=== PATIENT | male | born 1930 | race Caucasian/White ===

== ENCOUNTER 2017-04-22 07:46 | Inpatient (IN) | payer MEDICARE ==
[2017-04-22] MEDS ORDERED: IPRATROPIUM-ALBUTEROL 3 ML NEB INHALATION STA (08:09)
--- NOTE | 2017-04-22 08:13 | ED ---
SOB HPI - General Chief Complaint: Shortness of Breath Stated Complaint: SOB Time Seen by Provider: 04/22/17 08:01 Source: patient, RN notes reviewed Mode of arrival: ambulatory Limitations: no limitations - History of Present Illness Initial Comments: This is an 86-year-old male with a history of COPD and asthma and recently diagnosed left-sided pneumonia who presents today with complaints of some chest discomfort on the right cough with some foamy phlegm production fevers chills and sweats. He generally does not feel well he states. He does state he saw his doctor 3 days ago started on antibiotic she was diagnosed with something in his left lung now he feels like it's in his right lung. MD Complaint: shortness of breath, cough - Related Data Home Medications Medication Instructions Recorded Confirmed Albuterol Sulfate [Proair Hfa] 2 puff INHALATION RT-Q6H PRN 04/20/16 04/22/17 Aspirin EC [Ecotrin Low Dose] 81 mg PO DAILY 04/20/16 04/22/17 Cholecalciferol [Vitamin D3] 1,000 unit PO DAILY@1200 04/20/16 04/22/17 Fluticasone Nasal [place] [Flonase 2 spr EA NOSTRIL DAILY 04/20/16 04/22/17 Nasal [place]] Fluticasone/Salmeterol [Advair 1 inhalation PO RT-DAILY 04/20/16 04/22/17 500-50 Diskus] Loratadine [Claritin] 10 mg PO DAILY 04/20/16 04/22/17 Losartan/Hydrochlorothiazide 1 tab PO DAILY 04/20/16 04/22/17 [Losartan-Hctz 100-12.5 mg Tab] Metoprolol Succinate (ER) [Toprol 25 mg PO DAILY 04/20/16 04/22/17 Xl] Montelukast Sodium [Singulair] 10 mg PO HS 04/20/16 04/22/17 Roflumilast [Daliresp] 500 mcg PO DAILY@1200 04/20/16 04/22/17 Simvastatin [Zocor] 20 mg PO HS 04/20/16 04/22/17 Doxycycline Hyclate [Vibramycin] 100 mg PO BID 04/22/17 04/22/17 Ondansetron [Zofran ODT] 4 mg PO Q8HR PRN 04/22/17 04/22/17 Potassium Chloride [Klor-Con 10] 10 meq PO BID 04/22/17 04/22/17 Allergies Allergy/AdvReac Type Severity Reaction Status Date / Time levofloxacin Allergy Swelling Verified 04/22/17 08:28 Review of Systems ROS Statement: Those systems with pertinent positive or pertinent negative responses have been documented in the HPI. ROS Other: All systems not noted in ROS Statement are negative. Past Medical History Past Medical History: Asthma, COPD, Hyperlipidemia, Hypertension, Pneumonia History of Any Multi-Drug Resistant Organisms: None Reported Past Surgical History: Heart Catheterization, Hernia Repair Additional Past Surgical History / Comment(s): broncoscopy Past Psychological History: No Psychological Hx Reported Smoking Status: Former smoker Past Alcohol Use History: None Reported Past Drug Use History: None Reported General Exam - General Exam Comments Initial Comments: This is a well-developed well-nourished awake alert oriented 3 male Limitations: no limitations General appearance: alert, in no apparent distress Head exam: Present: atraumatic, normocephalic, normal inspection Eye exam: Present: normal appearance, PERRL, EOMI. Absent: scleral icterus, conjunctival injection, periorbital swelling ENT exam: Present: mucous membranes dry Neck exam: Present: normal inspection. Absent: tenderness, meningismus, lymphadenopathy Respiratory exam: Present: rhonchi, decreased breath sounds. Absent: respiratory distress, wheezes, rales, stridor Cardiovascular Exam: Present: normal rhythm, tachycardia, normal heart sounds. Absent: systolic murmur, diastolic murmur, rubs, gallop, clicks GI/Abdominal exam: Present: soft, normal bowel sounds. Absent: distended, tenderness, guarding, rebound, rigid Extremities exam: Present: normal inspection, full ROM, normal capillary refill. Absent: tenderness, pedal edema, joint swelling, calf tenderness Back exam: Present: normal inspection Neurological exam: Present: alert, oriented X3, CN II-XII intact Psychiatric exam: Present: normal affect, normal mood Skin exam: Present: warm, dry, intact, normal color. Absent: rash Course Vital Signs 04/22/17 04/22/17 04/22/17 07:47 08:00 08:15 Temperature 101.8 F H Pulse Rate 112 H 103 H 94 Respiratory 18 18 Rate Blood Pressure 127/79 162/74 136/55 O2 Sat by Pulse 88 L 96 Oximetry 08/14/17 08/14/17 08/14/17 08:30 08:46 09:00 Temperature Pulse Rate 94 90 106 H Respiratory Rate Blood Pressure 125/63 121/60 O2 Sat by Pulse 93 L Oximetry 04/22/17 09:30 Temperature 100.3 F H Pulse Rate 88 Respiratory 18 Rate Blood Pressure 101/52 O2 Sat by Pulse 92 L Oximetry - Reevaluation(s) Reevaluation #1: 04/22/17 10:40 I did reevaluate the patient he has some improvement though his pulse oximetry is still borderline. Medical Decision Making - Medical Decision Making Patient states he is feeling improved though he still somewhat dyspneic due to the presentation and findings patient be admitted for IV antibiotics and inpatient treatment. His pulse oximetry is 91-92 on oxygen. - Lab Data Result diagrams: 04/22/17 08:10 04/22/17 08:10 Lab Results 04/22/17 04/22/17 04/22/17 Range/Units 08:10 08:10 08:10 WBC 7.3 (3.8-10.6) k/uL RBC 4.30 (4.30-5.90) m/uL Hgb 13.8 (13.0-17.5) gm/dL Hct 41.8 (39.0-53.0) % MCV 97.1 (80.0-100.0) fL MCH 32.0 (25.0-35.0) pg MCHC 32.9 (31.0-37.0) g/dL RDW 14.5 (11.5-15.5) % Plt Count 123 L (150-450) k/uL Neutrophils % 84 % Lymphocytes % 5 % Monocytes % 5 % Eosinophils % 5 % Basophils % 0 % Neutrophils # 6.1 (1.3-7.7) k/uL Lymphocytes # 0.4 L (1.0-4.8) k/uL Monocytes # 0.4 (0-1.0) k/uL Eosinophils # 0.4 (0-0.7) k/uL Basophils # 0.0 (0-0.2) k/uL PT (9.0-12.0) sec INR (<1.2) APTT (22.0-30.0) sec Sodium 141 (137-145) mmol/L Potassium 4.4 (3.5-5.1) mmol/L Chloride 105 (98-107) mmol/L Carbon Dioxide 24 (22-30) mmol/L Anion Gap 12 mmol/L BUN 30 H (9-20) mg/dL Creatinine 1.30 H (0.66-1.25) mg/dL Est GFR (MDRD) Af Amer >60 (>60 ml/min/1.73 sqM) Est GFR (MDRD) Non-Af 53 (>60 ml/min/1.73 sqM) Glucose 118 H (74-99) mg/dL Plasma Lactic Acid Иван 1.0 (0.7-2.0) mmol/L Calcium 9.4 (8.4-10.2) mg/dL Magnesium 1.8 (1.6-2.3) mg/dL Total Bilirubin 1.5 H (0.2-1.3) mg/dL AST 15 L (17-59) U/L ALT 29 (21-72) U/L Alkaline Phosphatase 69 (38-126) U/L Total Creatine Kinase (55-170) U/L CK-MB (CK-2) (0.0-2.4) ng/mL CK-MB (CK-2) Rel Index Troponin I (0.000-0.034) ng/mL Total Protein 6.1 L (6.3-8.2) g/dL Albumin 3.5 (3.5-5.0) g/dL 04/22/17 04/22/17 Range/Units 08:10 08:10 WBC (3.8-10.6) k/uL RBC (4.30-5.90) m/uL Hgb (13.0-17.5) gm/dL Hct (39.0-53.0) % MCV (80.0-100.0) fL MCH (25.0-35.0) pg MCHC (31.0-37.0) g/dL RDW (11.5-15.5) % Plt Count (150-450) k/uL Neutrophils % % Lymphocytes % % Monocytes % % Eosinophils % % Basophils % % Neutrophils # (1.3-7.7) k/uL Lymphocytes # (1.0-4.8) k/uL Monocytes # (0-1.0) k/uL Eosinophils # (0-0.7) k/uL Basophils # (0-0.2) k/uL PT 11.3 (9.0-12.0) sec INR 1.1 (<1.2) APTT 25.8 (22.0-30.0) sec Sodium (137-145) mmol/L Potassium (3.5-5.1) mmol/L Chloride (98-107) mmol/L Carbon Dioxide (22-30) mmol/L Anion Gap mmol/L BUN (9-20) mg/dL Creatinine (0.66-1.25) mg/dL Est GFR (MDRD) Af Amer (>60 ml/min/1.73 sqM) Est GFR (MDRD) Non-Af (>60 ml/min/1.73 sqM) Glucose (74-99) mg/dL Plasma Lactic Acid Иван (0.7-2.0) mmol/L Calcium (8.4-10.2) mg/dL Magnesium (1.6-2.3) mg/dL Total Bilirubin (0.2-1.3) mg/dL AST (17-59) U/L ALT (21-72) U/L Alkaline Phosphatase (38-126) U/L Total Creatine Kinase 71 (55-170) U/L CK-MB (CK-2) 0.5 (0.0-2.4) ng/mL CK-MB (CK-2) Rel Index 0.7 Troponin I <0.012 (0.000-0.034) ng/mL Total Protein (6.3-8.2) g/dL Albumin (3.5-5.0) g/dL - EKG Data -: EKG Interpreted by [place] EKG shows normal: sinus rhythm (Sinus rhythm rate was 95. Interval to a 2 QRS 150 QT since QTC of 370/467 left axis deviation a bundle-branch block PVCs are noted) - Radiology Data Radiology results: report reviewed (Imaging shows evidence of a new apical infiltrate.), image reviewed Critical Care Time Critical Care Time: Yes Critical Care Time: 31 minutes of critical care time which includes initial presentation with history physical labs x-rays reevaluation of the patient to responsive therapy. Discussion with patient family regarding findings discussed with the admitting physician additional orders and documentation of the above. Disposition Clinical Impression: Right upper lobe pneumonia, COPD exacerbation, Hypoxemia, Febrile illness, acute, Adult respiratory distress syndrome Disposition: ADMITTED IP TO THIS HOSP Condition: Stable Referrals: Mariel Shirley DO [Primary Care Provider] - 1-2 days
[2017-04-22] MEDS ORDERED: ACETAMINOPHEN TAB 500 MG TAB PO STA (08:20)
[2017-04-22 08:35] LABS: Basophils % (A) 0 %; CH 33.4; CHCM 34.6; Eosinophils # (A) 0.4 k/uL (0-0.7); Eosinophils % (A) 5 %; HCT 41.8 % (39.0-53.0); HDW 2.93; HGB 13.8 gm/dL (13.0-17.5); Luc # (Auto) 0.07; Luc % (Auto) 1; Lymphocytes # (A) 0.4 k/uL (1.0-4.8); Lymphocytes % (A) 5 %; MCHC 32.9 g/dL (31.0-37.0); MCV 97.1 fL (80.0-100.0); Mean Platelet Volume 8.2; Monocytes # (A) 0.4 k/uL (0-1.0); Monocytes % (A) 5 %; Neutrophils # (A) 6.1 k/uL (1.3-7.7); Neutrophils % (A) 84 %; RDW 14.5 % (11.5-15.5); WBC 7.3 k/uL (3.8-10.6); WBC (Perox) 7.15
[2017-04-22 08:38] LABS: ALT 29 U/L (21-72); AST 15 U/L (17-59); Alkaline Phosphatase 69 U/L (38-126); Anion Gap 12 mmol/L; Blood Urea Nitrogen 30 mg/dL (9-20); Calcium 9.4 mg/dL (8.4-10.2); Carbon Dioxide 24 mmol/L (22-30); Chloride 105 mmol/L (98-107); Glucose 118 mg/dL (74-99); Magnesium 1.8 mg/dL (1.6-2.3); Non-African American GFR(MDRD) 53 (>60 ml/min/1.73 sqM); Potassium 4.4 mmol/L (3.5-5.1); Sodium 141 mmol/L (137-145); Total Bilirubin 1.5 mg/dL (0.2-1.3); Total Protein 6.1 g/dL (6.3-8.2)
[2017-04-22 08:50] LABS: INR 1.1 (<1.2); Partial Thromboplastin Time 25.8 sec (22.0-30.0); Prothrombin Time 11.3 sec (9.0-12.0)
--- NOTE | 2017-04-22 08:52 | XR ---
EXAMINATION TYPE: XR chest 2V DATE OF EXAM: 04/22/2017 COMPARISON: 04/20/2016 HISTORY: Cough and congestion. Shortness of breath. TECHNIQUE: Frontal and lateral views of the chest are obtained. FINDINGS: New right apical focal consolidation with bronchiectasis is noted. No findings to suggest right upper lobe collapse are seen. There is pulmonary hyperinflation, flattening of the diaphragms, and coarse reticular interstitial pattern throughout the lungs, predominating within the lower lobes . The cardiac silhouette size is within normal limits. The osseous structures are intact. IMPRESSION: 1. New right apical airspace disease with bronchiectasis. Primary consideration is for pneumonia supe rimposed upon severe pulmonary emphysema and interstitial lung disease.
[2017-04-22 09:04] LABS: Creatine Kinase 71 U/L (55-170)
[2017-04-22 09:16] LABS: Creatine Kinase MB 0.5 ng/mL (0.0-2.4); Troponin I <0.012 ng/mL (0.000-0.034)
[2017-04-22] MEDS ORDERED: AZITHROMYCIN 500 MG in SODIUM CHLORIDE 0.9% 250 ML IVPB STA (10:42)
[2017-04-22] MEDS ORDERED: PNEUMONIA PROTOCOL UTILIZED 1 EACH MISC PO PRN (10:42)
[2017-04-22] MEDS ORDERED: ONDANSETRON ODT 4 MG TAB PO PRN (10:44)
--- NOTE | 2017-04-22 10:46 | ED ---
Medical Decision Making - Lab Data Result diagrams: 04/22/17 08:10 04/22/17 08:10 Lab Results 04/22/17 04/22/17 04/22/17 Range/Units 08:10 08:10 08:10 WBC 7.3 (3.8-10.6) k/uL RBC 4.30 (4.30-5.90) m/uL Hgb 13.8 (13.0-17.5) gm/dL Hct 41.8 (39.0-53.0) % MCV 97.1 (80.0-100.0) fL MCH 32.0 (25.0-35.0) pg MCHC 32.9 (31.0-37.0) g/dL RDW 14.5 (11.5-15.5) % Plt Count 123 L (150-450) k/uL Neutrophils % 84 % Lymphocytes % 5 % Monocytes % 5 % Eosinophils % 5 % Basophils % 0 % Neutrophils # 6.1 (1.3-7.7) k/uL Lymphocytes # 0.4 L (1.0-4.8) k/uL Monocytes # 0.4 (0-1.0) k/uL Eosinophils # 0.4 (0-0.7) k/uL Basophils # 0.0 (0-0.2) k/uL PT (9.0-12.0) sec INR (<1.2) APTT (22.0-30.0) sec Sodium 141 (137-145) mmol/L Potassium 4.4 (3.5-5.1) mmol/L Chloride 105 (98-107) mmol/L Carbon Dioxide 24 (22-30) mmol/L Anion Gap 12 mmol/L BUN 30 H (9-20) mg/dL Creatinine 1.30 H (0.66-1.25) mg/dL Est GFR (MDRD) Af Amer >60 (>60 ml/min/1.73 sqM) Est GFR (MDRD) Non-Af 53 (>60 ml/min/1.73 sqM) Glucose 118 H (74-99) mg/dL Plasma Lactic Acid Иван 1.0 (0.7-2.0) mmol/L Calcium 9.4 (8.4-10.2) mg/dL Magnesium 1.8 (1.6-2.3) mg/dL Total Bilirubin 1.5 H (0.2-1.3) mg/dL AST 15 L (17-59) U/L ALT 29 (21-72) U/L Alkaline Phosphatase 69 (38-126) U/L Total Creatine Kinase (55-170) U/L CK-MB (CK-2) (0.0-2.4) ng/mL CK-MB (CK-2) Rel Index Troponin I (0.000-0.034) ng/mL Total Protein 6.1 L (6.3-8.2) g/dL Albumin 3.5 (3.5-5.0) g/dL 04/22/17 04/22/17 Range/Units 08:10 08:10 WBC (3.8-10.6) k/uL RBC (4.30-5.90) m/uL Hgb (13.0-17.5) gm/dL Hct (39.0-53.0) % MCV (80.0-100.0) fL MCH (25.0-35.0) pg MCHC (31.0-37.0) g/dL RDW (11.5-15.5) % Plt Count (150-450) k/uL Neutrophils % % Lymphocytes % % Monocytes % % Eosinophils % % Basophils % % Neutrophils # (1.3-7.7) k/uL Lymphocytes # (1.0-4.8) k/uL Monocytes # (0-1.0) k/uL Eosinophils # (0-0.7) k/uL Basophils # (0-0.2) k/uL PT 11.3 (9.0-12.0) sec INR 1.1 (<1.2) APTT 25.8 (22.0-30.0) sec Sodium (137-145) mmol/L Potassium (3.5-5.1) mmol/L Chloride (98-107) mmol/L Carbon Dioxide (22-30) mmol/L Anion Gap mmol/L BUN (9-20) mg/dL Creatinine (0.66-1.25) mg/dL Est GFR (MDRD) Af Amer (>60 ml/min/1.73 sqM) Est GFR (MDRD) Non-Af (>60 ml/min/1.73 sqM) Glucose (74-99) mg/dL Plasma Lactic Acid Иван (0.7-2.0) mmol/L Calcium (8.4-10.2) mg/dL Magnesium (1.6-2.3) mg/dL Total Bilirubin (0.2-1.3) mg/dL AST (17-59) U/L ALT (21-72) U/L Alkaline Phosphatase (38-126) U/L Total Creatine Kinase 71 (55-170) U/L CK-MB (CK-2) 0.5 (0.0-2.4) ng/mL CK-MB (CK-2) Rel Index 0.7 Troponin I <0.012 (0.000-0.034) ng/mL Total Protein (6.3-8.2) g/dL Albumin (3.5-5.0) g/dL Disposition Clinical Impression: Right upper lobe pneumonia, COPD exacerbation, Hypoxemia, Febrile illness, acute, Adult respiratory distress syndrome, Failure of outpatient treatment Disposition: ADMITTED IP TO THIS [facility] Condition: Stable Referrals: Mariel Shirley DO [Primary Care Provider] - 1-2 days
[2017-04-22] MEDS: SODIUM CHLORIDE 0.9% 1,000 ML IV SCH ×2 (11:06→19:49)
[2017-04-22] MEDS: IPRATROPIUM-ALBUTEROL 3 ML NEB INHALATION SCH ×3 (11:55→20:33)
[2017-04-22 12:06] LABS: Appearance,Urine Clear (Clear); Bilirubin,Urine Negative (Negative); Glucose,Urine (UA) Negative (Negative); Ketones,Urine Trace (Negative); Leukocyte Esterase,Urine Negative (Negative); Nitrite,Urine Negative (Negative); Protein,Urine Trace (Negative); Specific Gravity,Urine 1.009 (1.001-1.035); UA Billing (MACRO vs. MICRO) CHEM; Urobilinogen,Urine <2.0 mg/dL (<2.0)
[2017-04-22] MEDS: methylPREDNISolone SOD SUCCI 125 MG/2 ML VIAL IV SCH ×3 (12:17→23:44)
--- NOTE | 2017-04-22 12:43 | P.HPIM ---
History of Present Illness H&P Date: 04/22/17 Chief Complaint: Cough and fever This is a 86-year-old male, patient of Dr. Gutierrez. He has a known past medical history of COPD, hyperlipidemia, hypertension, coronary artery disease with no cardiac stents, a prior pneumonia that did not require hospitalization and was a former smoker. Patient initially went to see Dr. Shirley on Saturday with symptoms of severe cough and was diagnosed with possible pneumonia and started on doxycycline. Patient did not improve and symptoms worsened. Cough is productive with greenish sputum. Also having fever with severe chills. He was also hypoxic on presentation with a pulse ox 88% currently on 3 L satting at 94%. Chest x-ray showed evidence of a new right apical air space disease with bronchiectasis. Primary consideration is for pneumonia superimposed upon severe pulmonary emphysema and interstitial lung disease. Patient also had evidence of sepsis with a temperature 101.8 and heart rate of 112. Lactic acid was normal at 1.0 he was started on antibiotics in the form of Rocephin and azithromycin for pneumonia. Also started on IV steroids and bronchodilators for COPD exacerbation. Patient had evidence of acute kidney injury with a creatinine elevated at 1.30. The patient reports that he has not been eating and drinking very well since Saturday because he has not been feeling well. Patient denies any chest pain does admit to having some tightness in the chest. Denies any nausea or vomiting. He does report multiple episodes of diarrhea throughout the day yesterday. Stool for C. diff will be ordered since he has been on antibiotics for the last few days. She was seen and examined in the emergency room. Review of Systems Please refer to HPI otherwise unremarkable Past Medical History Past Medical History: Asthma, COPD, Hyperlipidemia, Hypertension, Pneumonia Additional Past Medical History / Comment(s): Minimal coronary artery disease with previous heart catheterization a year ago not requiring stents History of Any Multi-Drug Resistant Organisms: None Reported Past Surgical History: Heart Catheterization, Hernia Repair Additional Past Surgical History / Comment(s): broncoscopy Past Psychological History: No Psychological Hx Reported Smoking Status: Former smoker Past Alcohol Use History: None Reported Past Drug Use History: None Reported Medications and Allergies Home Medications Medication Instructions Recorded Confirmed Type Albuterol Sulfate [Proair Hfa] 2 puff INHALATION RT-Q6H PRN 04/20/16 04/22/17 History Aspirin EC [Ecotrin Low Dose] 81 mg PO DAILY 04/20/16 04/22/17 History Cholecalciferol [Vitamin D3] 1,000 unit PO DAILY@1200 04/20/16 04/22/17 History Fluticasone Nasal [place] [Flonase 2 spr EA NOSTRIL DAILY 04/20/16 04/22/17 History Nasal [place]] Fluticasone/Salmeterol [Advair 1 inhalation PO RT-DAILY 04/20/16 04/22/17 History 500-50 Diskus] Loratadine [Claritin] 10 mg PO DAILY 04/20/16 04/22/17 History Losartan/Hydrochlorothiazide 1 tab PO DAILY 04/20/16 04/22/17 History [Losartan-Hctz 100-12.5 mg Tab] Metoprolol Succinate (ER) [Toprol 25 mg PO DAILY 04/20/16 04/22/17 History Xl] Montelukast Sodium [Singulair] 10 mg PO HS 04/20/16 04/22/17 History Roflumilast [Daliresp] 500 mcg PO DAILY@1200 04/20/16 04/22/17 History Simvastatin [Zocor] 20 mg PO HS 04/20/16 04/22/17 History Doxycycline Hyclate [Vibramycin] 100 mg PO BID 04/22/17 04/22/17 History Ondansetron [Zofran ODT] 4 mg PO Q8HR PRN 04/22/17 04/22/17 History Potassium Chloride [Klor-Con 10] 10 meq PO BID 04/22/17 04/22/17 History Allergies Allergy/AdvReac Type Severity Reaction Status Date / Time levofloxacin Allergy Swelling Verified 04/22/17 08:28 Physical Exam Vitals: Vital Signs Temp Pulse Resp BP Pulse Ox 04/22/17 12:04 77 04/22/17 11:56 75 04/22/17 10:30 82 108/63 94 L 04/22/17 10:00 78 98/51 95 04/22/17 09:30 100.3 F H 88 18 101/52 92 L 04/22/17 09:00 93 121/60 04/22/17 08:46 90 04/22/17 08:30 94 125/63 93 L 04/22/17 08:15 94 18 136/55 96 04/22/17 08:00 103 H 162/74 04/22/17 07:47 101.8 F H 112 H 18 127/79 88 L Intake and Output 04/21/17 04/22/17 04/22/17 22:59 06:59 14:59 Other: Weight 65.771 kg Patient Weight 04/23/17 06:59 Weight 65.771 kg Head normocephalic Neck supple Lungs diminished with a few scattered wheezes noted in the right lung [place] Heart regular rate and rhythm S1-S2, no rub or gallop Abdomen is soft nontender nondistended positive bowel sounds no hepatosplenomegaly Extremities no edema Neuro alert and orientated to 3 Results CBC & Chem 7: 04/22/17 08:10 04/22/17 08:10 Labs: Abnormal Lab Results - Last 24 Hours (Table) 04/22/17 04/22/17 04/22/17 Range/Units 08:10 08:10 11:55 Plt Count 123 L (150-450) k/uL Lymphocytes # 0.4 L (1.0-4.8) k/uL BUN 30 H (9-20) mg/dL Creatinine 1.30 H (0.66-1.25) mg/dL Glucose 118 H (74-99) mg/dL Total Bilirubin 1.5 H (0.2-1.3) mg/dL AST 15 L (17-59) U/L Total Protein 6.1 L (6.3-8.2) g/dL Urine Protein Trace H (Negative) Urine Ketones Trace H (Negative) Assessment and Plan Plan: 1. Pneumonia with sepsis present on admission: Failed outpatient antibiotics. Chest x-ray showing a new right apical air space disease with bronchiectasis. With primary consideration for pneumonia superimposed on severe pulmonary emphysema and interstitial lung disease. Patient's been started on IV Rocephin and IV azithromycin. He was given IV fluid bolus in the emergency room. We'll increase IV fluids to normal saline at 125 mL an hour. Pulmonary service has been consulted. Check sputum culture. Check blood cultures. Sepsis on admission with temperature of 101.8 and heart rate 112 2. Acute COPD exacerbation: Patient started on IV Solu-Medrol 60 mg IV every 6 hours. Continue nebulizer treatments. Pulmonary service has been consulted 3. Acute hypoxic respiratory failure present on admission likely secondary to pneumonia and COPD exacerbation. Oxygen saturation has improved from 88% to 94 % on 3 L 4. Acute kidney injury: Creatinine 1.30 on admission. Discontinue the hydrochlorothiazide. Give IV fluids. Repeat labs in a.m. 5. Thrombocytopenia: We'll monitor. Back in April 2016 patient had a platelet count of 128. Patient is unaware of this and reports no platelet problems. 6. Essential hypertension: Blood pressures running on the lower side. Place parameters around blood pressure medications 7. Hyperlipidemia continue Lipitor 8. Multiple episodes of diarrhea yesterday with outpatient antibiotic use therefore we'll check stool for C. diff GI prophylaxis Pepcid and DVT prophylaxis SCDs incentive anticoagulation due to thrombocytopenia Time with Patient: Greater than 30 (Greater than 50% of the total time spent in counseling and coordination of care.I performed an examination of the patient and discussed their management with the physician Line Repairer. I have reviewed the Physician Line Repairer's notes and agree with the documented findings and plan of care)
[2017-04-22 13:28] LABS: Glucose,Whole Blood 177 mg/dL (75-99)
[2017-04-22] MEDS: CHOLECALCIFEROL 1,000 UNIT TAB PO SCH (13:31)
[2017-04-22 17:52] LABS: Glucose,Whole Blood 160 mg/dL (75-99)
[2017-04-22] MEDS: INSULIN LISPRO (humaLOG) 300 UNIT/3 ML VIAL SQ SCH ×2 (17:59→21:52)
[2017-04-22] MEDS: PATIENT'S OWN MED (Roflumilast [Daliresp] 500 MCG) PO SCH (20:13)
[2017-04-22] MEDS: POTASSIUM CHLORIDE ER 10 MEQ TAB.ER.PRT PO SCH (20:14)
[2017-04-22] MEDS: ATORVASTATIN 10 MG TAB PO SCH (20:14)
[2017-04-22] MEDS: MONTELUKAST 10 MG TAB PO SCH (20:14)
[2017-04-22 20:56] LABS: Glucose,Whole Blood 195 mg/dL (75-99)
[2017-04-22] MEDS ORDERED: HEPARIN SODIUM,PORCINE 5,000 UNIT/ML 1 ML VIAL SQ SCH (21:00)
[2017-04-22] MEDS ORDERED: IPRATROPIUM-ALBUTEROL 3 ML NEB INHALATION PRN (21:26)
[2017-04-23] MEDS: SODIUM CHLORIDE 0.9% 1,000 ML IV SCH ×3 (01:38→20:20)
[2017-04-23] MEDS: methylPREDNISolone SOD SUCCI 125 MG/2 ML VIAL IV SCH ×4 (05:19→23:58)
[2017-04-23 07:32] LABS: Glucose,Whole Blood 128 mg/dL (75-99)
[2017-04-23 07:56] LABS: Basophils % (A) 0 %; CH 33.1; CHCM 34.5; Eosinophils % (A) 0 %; HCT 39.1 % (39.0-53.0); HDW 2.96; HGB 13.1 gm/dL (13.0-17.5); Luc # (Auto) 0.02; Luc % (Auto) 0; Lymphocytes # (A) 0.3 k/uL (1.0-4.8); Lymphocytes % (A) 5 %; MCH 32.4 pg (25.0-35.0); MCHC 33.6 g/dL (31.0-37.0); MCV 96.6 fL (80.0-100.0); Mean Platelet Volume 8.2; Monocytes # (A) 0.1 k/uL (0-1.0); Monocytes % (A) 2 %; Neutrophils # (A) 6.4 k/uL (1.3-7.7); Neutrophils % (A) 93 %; RBC 4.05 m/uL (4.30-5.90); WBC 6.9 k/uL (3.8-10.6); WBC (Perox) 7.31
[2017-04-23 08:12] LABS: ALT 27 U/L (21-72); AST 12 U/L (17-59); Alkaline Phosphatase 58 U/L (38-126); Anion Gap 10 mmol/L; Blood Urea Nitrogen 23 mg/dL (9-20); Calcium 8.6 mg/dL (8.4-10.2); Carbon Dioxide 23 mmol/L (22-30); Chloride 110 mmol/L (98-107); Glucose 119 mg/dL (74-99); Non-African American GFR(MDRD) >60 (>60 ml/min/1.73 sqM); Potassium 4.1 mmol/L (3.5-5.1); Sodium 143 mmol/L (137-145); Total Bilirubin 0.5 mg/dL (0.2-1.3); Total Protein 5.6 g/dL (6.3-8.2)
[2017-04-23] MEDS: IPRATROPIUM-ALBUTEROL 3 ML NEB INHALATION SCH ×4 (08:24→20:28)
[2017-04-23] MEDS: SYMBICORT 160-4.5 MCG INHALER INHALATION SCH (08:24)
[2017-04-23 08:28] LABS: Creatine Kinase MB 1.1 ng/mL (0.0-2.4)
[2017-04-23] MEDS: FAMOTIDINE 20 MG TAB PO SCH (08:39)
[2017-04-23] MEDS: AZITHROMYCIN 500 MG TAB PO SCH (08:39)
[2017-04-23] MEDS: METOPROLOL SUCCINATE (ER) 25 MG TAB.ER.24H PO SCH (08:39)
[2017-04-23] MEDS: POTASSIUM CHLORIDE ER 10 MEQ TAB.ER.PRT PO SCH ×2 (08:39→20:20)
[2017-04-23] MEDS: HYDROCHLOROTHIAZIDE 12.5 MG CAP PO SCH (08:39)
[2017-04-23] MEDS: LORATADINE 10 MG TAB PO SCH (08:39)
[2017-04-23] MEDS: ASPIRIN 81 MG PO SCH (08:39)
[2017-04-23] MEDS: INSULIN LISPRO (humaLOG) 300 UNIT/3 ML VIAL SQ SCH ×4 (08:40→22:11)
[2017-04-23] MEDS: FLUTICASONE 50MCG/SPRAY NASAL 16GM EA NOSTRIL SCH (08:40)
[2017-04-23] MEDS: LOSARTAN 50 MG TAB PO SCH (08:40)
[2017-04-23] MEDS ORDERED: HYDROCHLOROTHIAZIDE 12.5 MG CAP PO SCH (09:00)
[2017-04-23 12:00] LABS: Glucose,Whole Blood 127 mg/dL (75-99)
--- NOTE | 2017-04-23 12:17 | P.CNPUL ---
History of Present Illness Consult date: 04/23/17 Requesting physician: Valeri Monzon Reason for consult: abnormal CXR/CT (Right upper lobe consolidation) Chief complaint: Shortness of breath, cough, congestion History of present illness: This is a very pleasant 86-year-old gentleman who follows with Dr. Mariel Shirley in the [facility] as his primary care physician. His a history of chronic obstructive pulmonary disease, hyperlipidemia, hypertension. He does have a history of 40+ year pack per day smoking however quit many years ago. His been seen and evaluated by Dr. Reis in the past. He is currently on Advair, pro-air, Daliresp and Singulair in the outpatient setting. He utilizes nighttime oxygen. He had been in his usual state of health until approximately 4 days ago where he woke up with severe headache, fatigue chills and general malaise. He was seen at the clinic and was treated with antibiotics. He was also seen in our ER on 04/20/2017 currently discharged to home. The next 2 days he was slightly better however yesterday he had very similar symptoms and presented here for the same. Initial temp 101.8. Chest x-ray did show evidence of right upper lobe infiltrate he was admitted for pneumonia with failed outpatient treatment. He is seen today in consultation on the regular medical floor. He is awake and alert in no acute distress. He continues with a loose nonproductive cough. No current chills or night sweats. He is feeling slightly better today as compared to yesterday. He did have evidence episodes of diarrhea as well. He's had no leukocytosis. Currently afebrile. He was initiated on ceftriaxone and azithromycin. Review of Systems 14 point review of system was conducted. All negative other than as mentioned in the HPI. 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 Last Myocardial Infarction Date:: unkn History of Any Multi-Drug Resistant Organisms: None Reported Past Surgical History: Heart Catheterization, Hernia Repair Additional Past Surgical History / Comment(s): Bronchoscopy, colonoscopies/ polypectomies-benign, R inguinal hernia repair, cataract removals bilaterally, L eye detached retina repair. Past Anesthesia/Blood Transfusion Reactions: No Reported Reaction Smoking Status: Former smoker - Past Family History Father Family Medical History: Cancer Additional Family Medical History / Comment(s): Father had lung cancer at the age of 62 yrs. He was a smoker and black jordan. Mother Additional Family Medical History / Comment(s): Mother at the age of 31yrs from a kidney infection. Medications and Allergies Home Medications Medication Instructions Recorded Confirmed Type Albuterol Sulfate [Proair Hfa] 2 puff INHALATION RT-Q6H PRN 04/20/16 04/22/17 History Aspirin EC [Ecotrin Low Dose] 81 mg PO DAILY 04/20/16 04/22/17 History Cholecalciferol [Vitamin D3] 1,000 unit PO DAILY@1200 04/20/16 04/22/17 History Fluticasone Nasal [place] [Flonase 2 spr EA NOSTRIL DAILY 04/20/16 04/22/17 History Nasal [place]] Fluticasone/Salmeterol [Advair 1 inhalation PO RT-DAILY 04/20/16 04/22/17 History 500-50 Diskus] Loratadine [Claritin] 10 mg PO DAILY 04/20/16 04/22/17 History Losartan/Hydrochlorothiazide 1 tab PO DAILY 04/20/16 04/22/17 History [Losartan-Hctz 100-12.5 mg Tab] Metoprolol Succinate (ER) [Toprol 25 mg PO DAILY 04/20/16 04/22/17 History Xl] Montelukast Sodium [Singulair] 10 mg PO HS 04/20/16 04/22/17 History Roflumilast [Daliresp] 500 mcg PO DAILY@1200 04/20/16 04/22/17 History Simvastatin [Zocor] 20 mg PO HS 04/20/16 04/22/17 History Doxycycline Hyclate [Vibramycin] 100 mg PO BID 04/22/17 04/22/17 History Ondansetron [Zofran ODT] 4 mg PO Q8HR PRN 04/22/17 04/22/17 History Potassium Chloride [Klor-Con 10] 10 meq PO BID 04/22/17 04/22/17 History Allergies Allergy/AdvReac Type Severity Reaction Status Date / Time levofloxacin Allergy Swelling Verified 04/22/17 08:28 Physical Exam Vitals: Vital Signs Temp Pulse Pulse Pulse Resp BP BP 04/23/17 11:55 80 04/23/17 08:38 80 04/23/17 08:24 76 04/23/17 08:12 97.0 F L 65 16 04/23/17 08:00 16 04/23/17 06:50 96.7 F L 73 20 04/22/17 23:00 97.4 F L 78 16 130/74 04/22/17 20:46 83 04/22/17 20:34 78 04/22/17 18:00 16 04/22/17 17:21 96 F L 101 H 20 112/62 04/22/17 16:55 97.9 F 66 18 111/58 04/22/17 16:15 68 04/22/17 16:05 70 04/22/17 15:52 80 18 124/63 04/22/17 14:26 97.4 F L 72 18 108/56 04/22/17 12:39 97.9 F 83 20 115/62 04/22/17 12:04 77 BP Pulse Ox 04/23/17 11:55 04/23/17 08:38 04/23/17 08:24 94 L 04/23/17 08:12 138/67 94 L 04/23/17 08:00 04/23/17 06:50 151/78 97 04/22/17 23:00 97 04/22/17 20:46 04/22/17 20:34 04/22/17 18:00 04/22/17 17:21 97 04/22/17 16:55 96 04/22/17 16:15 04/22/17 16:05 04/22/17 15:52 95 04/22/17 14:26 95 04/22/17 12:39 96 04/22/17 12:04 Intake and Output 04/22/17 04/23/17 04/23/17 22:59 06:59 14:59 Intake Total 200 Output Total 400 Balance 200 -400 Intake: Oral 200 Output: Urine 400 Other: # Voids 400 GENERAL EXAM: Alert, active, comfortable in no apparent distress. HEAD: Normocephalic. EYES: Normal reaction of pupils, equal size. NOSE: Clear with pink turbinates. THROAT: No erythema or exudates. NECK: No masses, no JVD. CHEST: No chest wall deformity. LUNGS: Equal air entry with scattered rhonchi in the right lung. Diminished. CVS: S1 and S2 normal with no audible murmurs, regular rhythm. ABDOMEN: No hepatosplenomegaly, normal bowel sounds, no guarding or rigidity. SPINE: No scoliosis or deformity SKIN: No rashes CENTRAL NERVOUS SYSTEM: No focal deficits, tone is normal in all 4 extremities. Sturman is: There is no peripheral edema. No clubbing, no cyanosis. Peripheral pulses are intact. Results - Laboratory Findings CBC and BMP: 04/23/17 07:35 04/23/17 07:35 PT/INR, D-dimer PT 11.3 sec (9.0-12.0) 04/22/17 08:10 INR 1.1 (<1.2) 04/22/17 08:10 Abnormal lab findings: Abnormal Labs 04/22/17 04/22/17 04/22/17 08:10 08:10 11:55 RBC Plt Count 123 L Lymphocytes # 0.4 L Chloride BUN 30 H Creatinine 1.30 H Glucose 118 H POC Glucose (mg/dL) Total Bilirubin 1.5 H AST 15 L Total Protein 6.1 L Albumin Urine Protein Trace H Urine Ketones Trace H 04/22/17 04/22/17 04/22/17 13:27 17:47 20:54 RBC Plt Count Lymphocytes # Chloride BUN Creatinine Glucose POC Glucose (mg/dL) 177 H 160 H 195 H Total Bilirubin AST Total Protein Albumin Urine Protein Urine Ketones 04/23/17 04/23/17 04/23/17 07:26 07:35 07:35 RBC 4.05 L Plt Count Lymphocytes # 0.3 L Chloride 110 H BUN 23 H Creatinine Glucose 119 H POC Glucose (mg/dL) 128 H Total Bilirubin AST 12 L Total Protein 5.6 L Albumin 3.2 L Urine Protein Urine Ketones 04/23/17 11:53 RBC Plt Count Lymphocytes # Chloride BUN Creatinine Glucose POC Glucose (mg/dL) 127 H Total Bilirubin AST Total Protein Albumin Urine Protein Urine Ketones - Diagnostic Findings Chest x-ray: image reviewed Assessment and Plan Plan: Impression: #1 Right upper lobe pneumonia, suspect community-acquired failed outpatient treatment. #2 Acute exacerbation of chronic obstructive pulmonary disease secondary to above. #3 Remote history of chronic tobacco dependence. #4 History of previous pneumonias. #5 Hyperlipidemia. 6 Hypertension. Plan: The patient was seen and evaluated by Dr. Reis. His chest x-ray and labs were reviewed. We'll continue with his current treatment for the pneumonia utilizing ceftriaxone and azithromycin. He remains on bronchodilators, Symbicort, Singulair, IV Solu-Medrol. We'll repeat his chest x-ray in the a.m. If there is no significant improvement the patient may require bronchoscopy with BAL of the right upper lobe. We'll continue to follow and make further recommendations based on his clinical status.. Time with Patient: Greater than 30
[2017-04-23] MEDS: CHOLECALCIFEROL 1,000 UNIT TAB PO SCH (13:36)
[2017-04-23] MEDS: PATIENT'S OWN MED (Roflumilast [Daliresp] 500 MCG) PO SCH (13:36)
--- NOTE | 2017-04-23 15:44 | XR ---
EXAMINATION TYPE: XR chest 2V DATE OF EXAM: 04/23/2017 COMPARISON: Prior chest x-ray 04/22/2017 HISTORY: Pneumonia TECHNIQUE: Frontal and lateral views of the chest are obtained. FINDINGS: Extensive emphysematous changes, interstitial lung disease again noted. No evident pneumot horax or pleural effusion. Cardiomediastinal silhouette, pulmonary vascularity and gaby are stable IMPRESSION: Findings similar to prior exam. Findings felt likely to be chronic. Correlate to exclude pneumonia.
[2017-04-23 16:54] LABS: Glucose,Whole Blood 122 mg/dL (75-99)
--- NOTE | 2017-04-23 18:10 | P.PN ---
Subjective This is a 86-year-old male, patient of Dr. Gutierrez. He has a known past medical history of COPD, hyperlipidemia, hypertension, coronary artery disease with no cardiac stents, a prior pneumonia that did not require hospitalization and was a former smoker. Patient initially went to see Dr. Shirley on Saturday with symptoms of severe cough and was diagnosed with possible pneumonia and started on doxycycline. Patient did not improve and symptoms worsened. Cough is productive with greenish sputum. Also having fever with severe chills. He was also hypoxic on presentation with a pulse ox 88% currently on 3 L satting at 94%. Chest x-ray showed evidence of a new right apical air space disease with bronchiectasis. Primary consideration is for pneumonia superimposed upon severe pulmonary emphysema and interstitial lung disease. Patient also had evidence of sepsis with a temperature 101.8 and heart rate of 112. Lactic acid was normal at 1.0 he was started on antibiotics in the form of Rocephin and azithromycin for pneumonia. Also started on IV steroids and bronchodilators for COPD exacerbation. Patient had evidence of acute kidney injury with a creatinine elevated at 1.30. The patient reports that he has not been eating and drinking very well since Saturday because he has not been feeling well. Patient denies any chest pain does admit to having some tightness in the chest. Denies any nausea or vomiting. He does report multiple episodes of diarrhea throughout the day yesterday. Stool for C. diff will be ordered since he has been on antibiotics for the last few days. She was seen and examined in the emergency room. On 04/23/2017 patient is feeling much better he is still complaining of cough complaining of shortness of breath with any activity however he feels much better than that time he came in, he is stating that he is going home tomorrow. Objective - Vital Signs Vital signs: Vital Signs Temp 97.0 F L 04/23/17 15:00 Pulse 81 04/23/17 15:21 Resp 16 04/23/17 16:00 BP 122/72 04/23/17 15:00 Pulse Ox 97 04/23/17 15:00 Intake & Output 04/22/17 04/23/17 04/23/17 18:59 06:59 18:59 Intake Total 200 Output Total 400 Balance -200 Weight 65.771 kg Intake: Oral 200 Output: Urine 400 Other: # Voids 400 1 - Exam In general patient is alert and oriented 3 in no apparent distress HEENT head normocephalic and atraumatic Neck is supple no JVD no goiter no lymphadenopathy Chest exam reveals a few scattered crackles no wheezing Cardiac exam reveals regular heart sounds no murmurs Abdomen is soft with moderate tenderness in the right upper quadrant no organomegaly Extremity exam reveals no edema no cyanosis or clubbing - Labs CBC & Chem 7: 04/23/17 07:35 04/23/17 07:35 Labs: Abnormal Lab Results - Last 24 Hours (Table) 04/22/17 04/23/17 04/23/17 Range/Units 20:54 07:26 07:35 RBC 4.05 L (4.30-5.90) m/uL Lymphocytes # 0.3 L (1.0-4.8) k/uL Chloride (98-107) mmol/L BUN (9-20) mg/dL Glucose (74-99) mg/dL POC Glucose (mg/dL) 195 H 128 H (75-99) mg/dL AST (17-59) U/L Total Protein (6.3-8.2) g/dL Albumin (3.5-5.0) g/dL 04/23/17 04/23/17 04/23/17 Range/Units 07:35 11:53 16:53 RBC (4.30-5.90) m/uL Lymphocytes # (1.0-4.8) k/uL Chloride 110 H (98-107) mmol/L BUN 23 H (9-20) mg/dL Glucose 119 H (74-99) mg/dL POC Glucose (mg/dL) 127 H 122 H (75-99) mg/dL AST 12 L (17-59) U/L Total Protein 5.6 L (6.3-8.2) g/dL Albumin 3.2 L (3.5-5.0) g/dL Microbiology - Last 24 Hours (Table) 04/22/17 11:55 Urine Culture - Final Urine,Voided 04/22/17 08:10 Blood Culture - Preliminary Blood No Growth after 24 hours 04/22/17 20:38 Gram Stain - Preliminary Sputum Sputum Culture - Preliminary Assessment and Plan Plan: 1. Pneumonia with sepsis present on admission: Failed outpatient antibiotics. Chest x-ray showing a new right apical air space disease with bronchiectasis. With primary consideration for pneumonia superimposed on severe pulmonary emphysema and interstitial lung disease. Patient's been started on IV Rocephin and IV azithromycin. He was given IV fluid bolus in the emergency room. We'll increase IV fluids to normal saline at 125 mL an hour. Pulmonary service has been consulted. Check sputum culture. Check blood cultures. Sepsis on admission with temperature of 101.8 and heart rate 112 2. Acute COPD exacerbation: Patient started on IV Solu-Medrol 60 mg IV every 6 hours. Continue nebulizer treatments. Pulmonary service has been consulted 3. Acute hypoxic respiratory failure present on admission likely secondary to pneumonia and COPD exacerbation. Oxygen saturation has improved from 88% to 94 % on 3 L 4. Acute kidney injury: Creatinine 1.30 on admission. Discontinue the hydrochlorothiazide. Give IV fluids. Repeat labs in a.m. 5. Thrombocytopenia: We'll monitor. Back in April 2016 patient had a platelet count of 128. Patient is unaware of this and reports no platelet problems. 6. Essential hypertension: Blood pressures running on the lower side. Place parameters around blood pressure medications 7. Hyperlipidemia continue Lipitor 8. Multiple episodes of diarrhea yesterday with outpatient antibiotic use therefore we'll check stool for C. diff
[2017-04-23] MEDS: ATORVASTATIN 10 MG TAB PO SCH (20:20)
[2017-04-23] MEDS: MONTELUKAST 10 MG TAB PO SCH (20:20)
[2017-04-23 21:45] LABS: Glucose,Whole Blood 187 mg/dL (75-99)
[2017-04-24] MEDS: methylPREDNISolone SOD SUCCI 125 MG/2 ML VIAL IV SCH ×2 (06:26→11:57)
[2017-04-24 07:05] LABS: Glucose,Whole Blood 105 mg/dL (75-99)
[2017-04-24] MEDS: INSULIN LISPRO (humaLOG) 300 UNIT/3 ML VIAL SQ SCH ×3 (07:37→17:13)
[2017-04-24] MEDS: IPRATROPIUM-ALBUTEROL 3 ML NEB INHALATION SCH ×3 (08:16→15:14)
[2017-04-24] MEDS: SYMBICORT 160-4.5 MCG INHALER INHALATION SCH (08:16)
[2017-04-24] MEDS: SODIUM CHLORIDE 0.9% 1,000 ML IV SCH (08:52)
[2017-04-24] MEDS: POTASSIUM CHLORIDE ER 10 MEQ TAB.ER.PRT PO SCH (09:09)
[2017-04-24] MEDS: ASPIRIN 81 MG PO SCH (09:09)
[2017-04-24] MEDS: LOSARTAN 50 MG TAB PO SCH (09:09)
[2017-04-24] MEDS: FLUTICASONE 50MCG/SPRAY NASAL 16GM EA NOSTRIL SCH (09:09)
[2017-04-24 09:10] LABS: Basophils % (A) 0 %; CH 31.9; CHCM 33.7; Eosinophils % (A) 0 %; HCT 39.6 % (39.0-53.0); HDW 3.06; HGB 13.5 gm/dL (13.0-17.5); Luc # (Auto) 0.04; Luc % (Auto) 1; Lymphocytes # (A) 0.6 k/uL (1.0-4.8); Lymphocytes % (A) 7 %; MCH 32.6 pg (25.0-35.0); MCHC 34.1 g/dL (31.0-37.0); MCV 95.4 fL (80.0-100.0); Mean Platelet Volume 7.4; Monocytes # (A) 0.2 k/uL (0-1.0); Monocytes % (A) 2 %; Neutrophils # (A) 7.9 k/uL (1.3-7.7); Neutrophils % (A) 90 %; RBC 4.15 m/uL (4.30-5.90); RDW 13.4 % (11.5-15.5); WBC 8.7 k/uL (3.8-10.6); WBC (Perox) 8.83
[2017-04-24] MEDS: LORATADINE 10 MG TAB PO SCH (09:10)
[2017-04-24] MEDS: AZITHROMYCIN 500 MG TAB PO SCH (09:10)
[2017-04-24] MEDS: HYDROCHLOROTHIAZIDE 12.5 MG CAP PO SCH (09:10)
[2017-04-24] MEDS: FAMOTIDINE 20 MG TAB PO SCH (09:10)
[2017-04-24] MEDS: METOPROLOL SUCCINATE (ER) 25 MG TAB.ER.24H PO SCH (09:10)
[2017-04-24 09:20] LABS: ALT 21 U/L (21-72); AST 17 U/L (17-59); Alkaline Phosphatase 63 U/L (38-126); Anion Gap 12 mmol/L; Blood Urea Nitrogen 25 mg/dL (9-20); Calcium 8.6 mg/dL (8.4-10.2); Carbon Dioxide 21 mmol/L (22-30); Chloride 113 mmol/L (98-107); Glucose 145 mg/dL (74-99); Non-African American GFR(MDRD) >60 (>60 ml/min/1.73 sqM); Potassium 3.5 mmol/L (3.5-5.1); Sodium 146 mmol/L (137-145); Total Bilirubin 0.4 mg/dL (0.2-1.3); Total Protein 5.6 g/dL (6.3-8.2)
--- NOTE | 2017-04-24 11:38 | P.PN ---
Subjective This is a very pleasant 86-year-old gentleman who follows with Dr. Mariel Shirley in the [place] [facility] as his primary care physician. His a history of chronic obstructive pulmonary disease, hyperlipidemia, hypertension. He does have a history of 40+ year pack per day smoking however quit many years ago. His been seen and evaluated by Dr. Reis in the past. He is currently on Advair, pro-air, Daliresp and Singulair in the outpatient setting. He utilizes nighttime oxygen. He had been in his usual state of health until approximately 4 days ago where he woke up with severe headache, fatigue chills and general malaise. He was seen at the clinic and was treated with antibiotics. He was also seen in our ER on 04/20/2017 currently discharged to home. The next 2 days he was slightly better however yesterday he had very similar symptoms and presented here for the same. Initial temp 101.8. Chest x-ray did show evidence of right upper lobe infiltrate he was admitted for pneumonia with failed outpatient treatment. He is seen today in consultation on the regular medical floor. He is awake and alert in no acute distress. He continues with a loose nonproductive cough. No current chills or night sweats. He is feeling slightly better today as compared to yesterday. He did have evidence episodes of diarrhea as well. He's had no leukocytosis. Currently afebrile. He was initiated on ceftriaxone and azithromycin. The patient is seen again today 04/24/2017 in follow-up on the regular medical floor. He is awake and alert in no acute distress. He's been up ambulating without any significant dyspnea. He is maintaining O2 saturations in the 90s on room air. His been afebrile. Hemodynamically stable. He remains on ceftriaxone and azithromycin. Chest x-ray is pending. Blood, urine and sputum cultures reveal no growth to date. Objective - Vital Signs Vital signs: Vital Signs Temp 97.0 F L 04/24/17 07:00 Pulse 77 04/24/17 11:28 Resp 14 04/24/17 07:00 BP 136/66 04/24/17 07:00 Pulse Ox 94 L 04/24/17 07:00 Intake & Output 04/23/17 04/24/17 04/24/17 18:59 06:59 18:59 Intake Total 600 Balance 600 Intake: Oral 600 Other: Voiding Method Urinal Toilet Urinal # Voids 1 3 - Exam GENERAL EXAM: Alert, active, comfortable in no apparent distress. HEAD: Normocephalic. EYES: Normal reaction of pupils, equal size. NOSE: Clear with pink turbinates. THROAT: No erythema or exudates. NECK: No masses, no JVD. CHEST: No chest wall deformity. LUNGS: Equal air entry with scattered rhonchi in the right lung. Diminished. CVS: S1 and S2 normal with no audible murmurs, regular rhythm. ABDOMEN: No hepatosplenomegaly, normal bowel sounds, no guarding or rigidity. SPINE: No scoliosis or deformity SKIN: No rashes CENTRAL NERVOUS SYSTEM: No focal deficits, tone is normal in all 4 extremities. Sturman is: There is no peripheral edema. No clubbing, no cyanosis. Peripheral pulses are intact. - Labs CBC & Chem 7: 04/24/17 08:37 04/24/17 08:37 Labs: Abnormal Lab Results - Last 24 Hours (Table) 04/23/17 04/23/17 04/23/17 Range/Units 11:53 16:53 21:43 RBC (4.30-5.90) m/uL Neutrophils # (1.3-7.7) k/uL Lymphocytes # (1.0-4.8) k/uL Sodium (137-145) mmol/L Chloride (98-107) mmol/L Carbon Dioxide (22-30) mmol/L BUN (9-20) mg/dL Glucose (74-99) mg/dL POC Glucose (mg/dL) 127 H 122 H 187 H (75-99) mg/dL Total Protein (6.3-8.2) g/dL Albumin (3.5-5.0) g/dL 04/24/17 04/24/17 04/24/17 Range/Units 07:04 08:37 08:37 RBC 4.15 L (4.30-5.90) m/uL Neutrophils # 7.9 H (1.3-7.7) k/uL Lymphocytes # 0.6 L (1.0-4.8) k/uL Sodium 146 H (137-145) mmol/L Chloride 113 H (98-107) mmol/L Carbon Dioxide 21 L (22-30) mmol/L BUN 25 H (9-20) mg/dL Glucose 145 H (74-99) mg/dL POC Glucose (mg/dL) 105 H (75-99) mg/dL Total Protein 5.6 L (6.3-8.2) g/dL Albumin 3.2 L (3.5-5.0) g/dL Microbiology - Last 24 Hours (Table) 04/22/17 08:10 Blood Culture - Preliminary Blood No Growth after 48 hours 04/22/17 11:55 Urine Culture - Final Urine,Voided Assessment and Plan Plan: Impression: #1 Right upper lobe pneumonia, suspect community-acquired failed outpatient treatment. #2 Acute exacerbation of chronic obstructive pulmonary disease secondary to above. #3 Remote history of chronic tobacco dependence. #4 History of previous pneumonias. #5 Hyperlipidemia. 6 Hypertension. Plan: The patient was seen and evaluated by Dr. Reis. We'll continue with his current treatment. We'll repeat his chest x-ray. If there is no improvement in the right upper lobe infiltrate we'll plan for bronchoscopy with BAL in the a.m. If it is clearing he could possibly be discharged home and complete his course of antibiotics and prednisone taper. He would benefit from a follow-up in our office 1-2 weeks post discharge. We can repeat his chest x-ray done. He had also benefit from full pulmonary function testing to evaluate this very of his COPD and make recommendations regarding maintenance medications. In the interim we'll continue to follow make further recommendations based on his clinical status.
[2017-04-24] MEDS: CHOLECALCIFEROL 1,000 UNIT TAB PO SCH (11:57)
[2017-04-24] MEDS: PATIENT'S OWN MED (Roflumilast [Daliresp] 500 MCG) PO SCH (11:57)
[2017-04-24 12:17] LABS: Glucose,Whole Blood 101 mg/dL (75-99)
--- NOTE | 2017-04-24 14:27 | XR ---
EXAMINATION TYPE: XR chest 2V DATE OF EXAM: 04/24/2017 COMPARISON: Prior chest x-ray 04/23/2017 HISTORY: Right upper lobe infiltrate, cough TECHNIQUE: Frontal and lateral views of the chest are obtained. FINDINGS: There is no significant interval change. IMPRESSION: Stable exam. Interstitial lung disease. There is underlying emphysema. Difficult to excl ude superimposed pneumonia, chest CT may be of benefit.
[2017-04-24 15:10] VITALS: BP 129/69; RESP 16; TEMP 97.2
[2017-04-24 15:27] VITALS: PULSE 72
[2017-04-24 17:09] LABS: Glucose,Whole Blood 127 mg/dL (75-99)
--- NOTE | 2017-04-24 17:40 | P.DS ---
Providers Date of admission: 04/22/17 10:42 Expected date of discharge: 04/24/17 Attending physician: Valeri Monzon Consults: 04/22/17 10:51 Consult Physician Routine Consulting Provider: Sveta Reis Consult Reason/Comments: pneumonia, COPD Do you want consulting provider notified?: Yes Primary care physician: Mariel Shirley Hospital Course: Diagnoses on discharge: 1. Pneumonia with sepsis present on admission: Failed outpatient antibiotics. Chest x-ray showing a new right apical air space disease with bronchiectasis. With primary consideration for pneumonia superimposed on severe pulmonary emphysema and interstitial lung disease. Patient's been started on IV Rocephin and IV azithromycin. He was given IV fluid bolus in the emergency room. We'll increase IV fluids to normal saline at 125 mL an hour. Pulmonary service has been consulted. Check sputum culture. Check blood cultures. Sepsis on admission with temperature of 101.8 and heart rate 112 2. Acute COPD exacerbation: Patient started on IV Solu-Medrol 60 mg IV every 6 hours. Continue nebulizer treatments. Pulmonary service has been consulted 3. Acute hypoxic respiratory failure present on admission likely secondary to pneumonia and COPD exacerbation. Oxygen saturation has improved from 88% to 94 % on 3 L 4. Acute kidney injury: Creatinine 1.30 on admission. Discontinue the hydrochlorothiazide. Give IV fluids. Repeat labs in a.m. 5. Thrombocytopenia: We'll monitor. Back in April 2016 patient had a platelet count of 128. Patient is unaware of this and reports no platelet problems. 6. Essential hypertension: Blood pressures running on the lower side. Place parameters around blood pressure medications 7. Hyperlipidemia continue Lipitor 8. Multiple episodes of diarrhea yesterday with outpatient antibiotic use therefore we'll check stool for C. diff Hospital course: This is a 86-year-old male, patient of Dr. Shirley'heidi. He has a known past medical history of COPD, hyperlipidemia, hypertension, coronary artery disease with no cardiac stents, a prior pneumonia that did not require hospitalization and was a former smoker. Patient initially went to see Dr. Shirley on Saturday with symptoms of severe cough and was diagnosed with possible pneumonia and started on doxycycline. Patient did not improve and symptoms worsened. Cough is productive with greenish sputum. Also having fever with severe chills. He was also hypoxic on presentation with a pulse ox 88% currently on 3 L satting at 94%. Chest x-ray showed evidence of a new right apical air space disease with bronchiectasis. Primary consideration is for pneumonia superimposed upon severe pulmonary emphysema and interstitial lung disease. Patient also had evidence of sepsis with a temperature 101.8 and heart rate of 112. Lactic acid was normal at 1.0 he was started on antibiotics in the form of Rocephin and azithromycin for pneumonia. Also started on IV steroids and bronchodilators for COPD exacerbation. Patient had evidence of acute kidney injury with a creatinine elevated at 1.30. The patient reports that he has not been eating and drinking very well since Saturday because he has not been feeling well. Patient denies any chest pain does admit to having some tightness in the chest. Denies any nausea or vomiting. He does report multiple episodes of diarrhea throughout the day yesterday. Stool for C. diff will be ordered since he has been on antibiotics for the last few days. She was seen and examined in the emergency room. On 04/23/2017 patient is feeling much better he is still complaining of cough complaining of shortness of breath with any activity however he feels much better than that time. on 04/24/2017 patient is feeling better insisting on going home, nurse Lawton contacted Dr Reis who cleared him for discharge. I reviewed pulmonary note by DRAW[employer] HELPER eleanor Palomares this am and did not mention discharge today, Nurse Lawton contacted Dr Reis again and patient was cleared for discharge. Per pulmonary recommendation he was given a course of Levaquin 500 mg 1 daily for 7 days, and Medrol Dosepak he was discharged home he would follow up with Dr. Dalton within one week. Also follow-up with his primary care physician within one week. Patient Condition at Discharge: Stable Plan - Discharge Summary New Discharge Prescriptions: New Levofloxacin [Levaquin] 500 mg PO Q24H tab methylPREDNISolone Dose Pack [Medrol Dose Pack] 4 mg PO DIRECTED #21 package Continue Roflumilast [Daliresp] 500 mcg PO DAILY@1200 Metoprolol Succinate (ER) [Toprol XL] 25 mg PO DAILY Albuterol Sulfate [Proair Hfa] 2 puff INHALATION RT-Q6H PRN PRN Reason: Shortness Of Breath Fluticasone/Salmeterol [Advair 500-50 Diskus] 1 inhalation PO RT-DAILY Fluticasone Nasal [place] [Flonase Nasal [place]] 2 spr EA NOSTRIL DAILY Simvastatin [Zocor] 20 mg PO HS Montelukast Sodium [Singulair] 10 mg PO HS Loratadine [Claritin] 10 mg PO DAILY Cholecalciferol [Vitamin D3] 1,000 unit PO DAILY@1200 Aspirin EC [Ecotrin Low Dose] 81 mg PO DAILY Losartan/Hydrochlorothiazide [Losartan-Hctz 100-12.5 mg Tab] 1 tab PO DAILY Potassium Chloride [Klor-Con 10] 10 meq PO BID Discontinued Doxycycline Hyclate [Vibramycin] 100 mg PO BID Ondansetron [Zofran ODT] 4 mg PO Q8HR PRN PRN Reason: Nausea Discharge Medication List Albuterol Sulfate [Proair Hfa] 2 puff INHALATION RT-Q6H PRN 04/20/16 [History] Aspirin EC [Ecotrin Low Dose] 81 mg PO DAILY 04/20/16 [History] Cholecalciferol [Vitamin D3] 1,000 unit PO DAILY@1200 04/20/16 [History] Fluticasone Nasal [place] [Flonase Nasal [place]] 2 spr EA NOSTRIL DAILY 04/20/16 [ History] Fluticasone/Salmeterol [Advair 500-50 Diskus] 1 inhalation PO RT-DAILY 04/20/16 [History] Loratadine [Claritin] 10 mg PO DAILY 04/20/16 [History] Losartan/Hydrochlorothiazide [Losartan-Hctz 100-12.5 mg Tab] 1 tab PO DAILY 08/24 [History] Metoprolol Succinate (ER) [Toprol XL] 25 mg PO DAILY 04/20/16 [History] Montelukast Sodium [Singulair] 10 mg PO HS 04/20/16 [History] Roflumilast [Daliresp] 500 mcg PO DAILY@1200 04/20/16 [History] Simvastatin [Zocor] 20 mg PO HS 04/20/16 [History] Potassium Chloride [Klor-Con 10] 10 meq PO BID 04/22/17 [History] Levofloxacin [Levaquin] 500 mg PO Q24H tab 04/24/17 [Rx] methylPREDNISolone Dose Pack [Medrol Dose Pack] 4 mg PO DIRECTED #21 package 04/24/17 [Rx] Follow up Appointment(s)/Referral(s): Sveta Reis MD [STAFF PHYSICIAN] - 1 Week Mariel Shirley DO [Primary Care Provider] - 1-2 days
[2017-04-24] MEDS ORDERED: LEVOFLOXACIN 500 MG TAB PO SCH (18:00)
== END 2017-04-24 18:08 | disposition home or self-care (01) | DRG 871 ==
LOC: EC 07:46 → 4MS4W 10:42
PROVIDERS: ADMIT Internal Medicine; ATTEND Internal Medicine
DX: A41.9 Sepsis, unspecified organism (principal); J18.9 Pneumonia, unspecified organism; J96.01 Acute respiratory failure with hypoxia; J84.9 Interstitial pulmonary disease, unspecified; N17.9 Acute kidney failure, unspecified; J44.0 Chronic obstructive pulmonary disease with (acute) lower respiratory infection; D69.6 Thrombocytopenia, unspecified; J44.1 Chronic obstructive pulmonary disease with (acute) exacerbation; E78.5 Hyperlipidemia, unspecified; I10 Essential (primary) hypertension; I25.10 Atherosclerotic heart disease of native coronary artery without angina pectoris; I25.2 Old myocardial infarction; Z79.82 Long term (current) use of aspirin; Z79.899 Other long term (current) drug therapy; Z87.891 Personal history of nicotine dependence; Z98.42 Cataract extraction status, left eye; Z98.41 Cataract extraction status, right eye; Z88.1 Allergy status to other antibiotic agents
CPT/HCPCS: 36415; 71020; 80053; 81003; 82550; 82553; 83036; 83605; 83735; 84484; 85025; 85610; 85730; 87040; 87070; 87077; 87086; 87186; 87205; 87324; 93005; 94640; 96361; 96365; 96366; 96367; 96375; 99291

== ENCOUNTER → 2017-05-20 | Outpatient (CLI) | payer MEDICARE ==
[2017-05-20 16:30] LABS: Blood Urea Nitrogen 13 mg/dL (9-20); Non-African American GFR(MDRD) >60 (>60 ml/min/1.73 sqM)
--- NOTE | 2017-05-20 17:39 | CT ---
EXAMINATION TYPE: CT chest w con DATE OF EXAM: 05/20/2017 COMPARISON: 05/29/2012 HISTORY: Abnormal xray. CT DLP: 248.3 mGycm Automated exposure control for dose reduction was used. CONTRAST: CT scan of the chest is performed with IV Contrast, patient injected with 95 mL of Omnipaque 300. FINDINGS: LUNGS: There is diffuse pulmonary emphysema. There are multiple bulla in both lungs. Thoracic aorta i s atheromatous. There is no evidence of dissection. I see no filling defects in the pulmonary arterie s. There is no mediastinal adenopathy. There are no hilar masses. There is no evidence of a pulmonary mass. There is no pleural effusion. There are numerous renal cortical cysts in the visualized kidney s that measure up to 8 cm. There is a 1 cm area of increased density in the inferior lateral liver th at is probably a hemangioma. Thoracic spine is intact. IMPRESSION: Severe bullous emphysema without change compared to old exam.
== END | disposition home or self-care (01) ==
LOC: RADCTMAIN 16:02
PROVIDERS: ATTEND Internal Medicine
DX: J43.9 Emphysema, unspecified (principal); Z88.1 Allergy status to other antibiotic agents
CPT/HCPCS: 82565; 84520; 71260; 36415; Q9967